=== PATIENT | female | born 1955 | race Caucasian/White ===

== ENCOUNTER 2016-09-04 13:16 | Emergency (ER) | payer SELFPAY ==
[~2016-09-04] VITALS: Ht 167.6 cm; Wt 59.0 kg
[2016-09-04 13:22] VITALS: PULSE 73; RESP 16; TEMP 98.3; O2SAT 96
[2016-09-04] MEDS ORDERED: PROZ20CA11 PO (13:39)
[2016-09-04] MEDS ORDERED: NEUR300C PO (13:39)
--- NOTE | 2016-09-04 13:56 | PD ---
HPI Chief Complaint: Injury Time Seen by Provider: 13:56 Travel History International Travel<30 days: No Contact w/Intl Traveler<30days: No Traveled to known affect area: No History of Present Illness HPI 60-year-old female presents to the emergency room for evaluation of left thumb/ hand pain for the past 2 days that worsened this morning. Patient states 2 days ago she tripped and fell forward catching her left thumb on the door and bending it backwards. She had extreme and immediate pain in the thumb at the time. She went to an urgent care center the following day and was placed in a splint, given a referral to orthopedic surgeon, and discharged with prescription for Lortab. States at first her symptoms seemed to be improving but this morning her pain worsened acutely. She also developed worsening swelling. Patient was concerned she may have reinjured her thumb while in the bathtub but cannot remember any specific incident. She took her prescribed medication and states it did not help at all. Her friend then noticed that her fingertips were turning blue and her pain continued to worsen, bringing her to tears. PFSH Past Medical History Depression: Yes Tetanus Vaccination: < 5 Years Influenza Vaccination: No Past Surgical History Hysterectomy: Yes Social History Alcohol Use: No Tobacco Use: Yes Substance Use: No Allergies-Medications (Allergen,Severity, Reaction): Coded Allergies: No Known Allergies (Unverified , 09/04/16) Reported Meds & Prescriptions Reported Meds & Active Scripts Active Reported Prozac (Fluoxetine HCl) 20 Mg Cap 20 Mg PO DAILY Neurontin (Gabapentin) 300 Mg Cap 300 Mg PO TID Review of Systems Except as stated in HPI: all other systems reviewed are Neg Physical Exam Narrative GENERAL: Well-nourished, well-developed female in no acute distress. Afebrile. Ambulatory. SKIN: Warm and dry. Very superficial, well healing abrasion without evidence of infection on the left dorsal hand. HEAD: Normocephalic. EYES: No scleral icterus. No injection or drainage. NECK: Supple, trachea midline. No JVD or lymphadenopathy. EXTREMITY: Left thumb extremely tender to palpation over the ulnar aspect of the thumb MCP joint. Limited range of motion in thumb secondary to pain. Moderate edema distal to the splint. 2+ radial pulse. Less than 2 second capillary refill distally. Data Data Last Documented VS Vital Signs Date Time Temp Pulse Resp B/P Pulse Ox O2 Delivery O2 Flow Rate FiO2 09/04/16 13:22 98.3 73 16 96 Orders Splint Or Brace Apply/Monitor (09/04/16 14:14) MDM Medical Decision Making Medical Screen Exam Complete: Yes Emergency Medical Condition: Yes Medical Record Reviewed: Yes Differential Diagnosis Gamekeeper's thumb versus splint removal versus dependent edema Narrative Course 60-year-old female presents to the emergency room for evaluation of cast discomfort that started this morning. She was diagnosis of gamekeeper's thumb yesterday after hyperextending her thumb and going to an urgent care center. She was placed in a thumb spica splint without swelling and discharged with prescription for Lortab and referral to orthopedic surgeon. Patient has not made a follow-up appointment yet. Patient states her pain and swelling became acutely worse this morning after taking a bath. Reports associated blue tinged fingers prior to coming to the emergency room. Physical exam reveals mild to moderate edema just distal to the splint. Splint was removed and patient reports immediate relief in pain. Left upper extremity is neurovascularly intact with 2+ radial pulse. There is no edema or ecchymosis over the affected thumb. Less than 2 second capillary refill distally in the entire hand. Worsening edema, pain, and decreased circulation likely from tight splint. New , looser splint was applied with sling and patient was told to follow up as instructed or return for worsening symptoms. She understands and agrees to plan. Diagnosis Primary Impression: Gamekeeper's thumb of left hand Qualified Code: S53.32XA - Gamekeeper's thumb of left hand, initial encounter Additional Impression: Cast discomfort Referrals: Orthopaedic Surgeon Primary Care Physician Patient Instructions: General Instructions, Skier's Thumb (ED) Additional Instructions: Rest and drink plenty of fluids. Continue prescribed medication as directed, as needed for pain. Elevate and apply ice to the affected area for 20 minutes at a time, as needed for pain and swelling. Use sling to avoid swelling. Follow-up with an orthopedic surgeon as instructed. Return to the emergency room for worsening symptoms. Disposition: 01 DISCHARGE HOME Condition: Stable [place] Sep 04, 2016 13:56
== END 2016-09-04 14:59 | disposition home or self-care (01) ==
LOC: PHEFT 13:16
DX: S53.32XA Traumatic rupture of left ulnar collateral ligament, initial encounter (principal); W01.0XXA Fall on same level from slipping, tripping and stumbling without subsequent striking against object, initial encounter
CPT/HCPCS: 99283; L3808